=== PATIENT | female | born 1950 | race Two or more races ===

== ENCOUNTER 2019-03-14 06:33 | Day surgery (SDC) | payer OTHER ==
[~2019-03-14 06:33] MED LIST: ALDACTONE25 MG PO; BUSPAR PO; CHILDREN'S ASPI81 MG PO; CRESTOR10 MG PO; INDERAL LA80 MG PO; PAXIL20 MG PO
[2019-03-14] MEDS ORDERED: ULTRACET PO (10:45)
[2019-03-14] MEDS ORDERED: MACROBID 100 M100 MG PO (10:45)
== END 2019-03-14 16:15 | disposition home or self-care (01) ==
LOC: CIR.AMB 06:33 → ADM 11:00 → CIR.AMB 11:00
DX: N81.3 Complete uterovaginal prolapse (principal)